=== PATIENT | female | born 1980 | race Caucasian/White ===

== ENCOUNTER 2017-05-05 11:00 | Emergency (ER) | payer BC ==
[2017-05-05] MEDS: IBUPROFEN 800 MG TABLET. PO ×2 (12:12)
== END 2017-05-05 13:55 | disposition home or self-care (01) ==
LOC: ER 11:00
DX: M79.641 Pain in right hand (principal); M25.531 Pain in right wrist; M79.89 Other specified soft tissue disorders; F12.10 Cannabis abuse, uncomplicated; Z88.0 Allergy status to penicillin; V86.59XA Driver of other special all-terrain or other off-road motor vehicle injured in nontraffic accident, initial encounter; Y93.I9 Activity, other involving external motion; Y92.89 Other specified places as the place of occurrence of the external cause; Y99.8 Other external cause status
CPT/HCPCS: 29125; 73110; 73130; 99284